=== PATIENT | female | born 1995 | race African-American/Black ===

== ENCOUNTER 2022-10-26 06:55 | Emergency (ER) | payer SELFPAY ==
[2022-10-26] MEDS ORDERED: Levofloxacin 250 MG Tab PO ONE (07:27)
== END 2022-10-26 07:46 | disposition home or self-care (01) ==
LOC: JD.ED 06:55
DX: N39.0 Urinary tract infection, site not specified (principal); I10 Essential (primary) hypertension
CPT/HCPCS: 81001; 87086; 87088; 87186; 99283; A9270